=== PATIENT | female | born 1950 | race Caucasian/White ===

== ENCOUNTER 2017-05-20 18:54 | Emergency (ER) | payer MEDICARE, OTHER ==
[~2017-05-20] VITALS: Ht 154.9 cm; Wt 56.9 kg
[~2017-05-20 18:54] MED LIST: ALBU8.5H3 INH; AMOX-291 PO; AZIT250T PO; AZIT500T77 PO; BUDE10.22 INH; CEFD300C37 PO; DOXY100T PO; FLUT1BLS PO; HYDR25CA PO; OMEP-110 PO; PRED1TAB PO; PRED20TA PO; TIOT18CA INH
[2017-05-20] MEDS ORDERED: SODIUM CHLORIDE FLUSH 10ML SYR IVF ONE (19:30)
[2017-05-20 19:56] LABS: HEMATOCRIT 36.2 % (34.6-47.8); HEMOGLOBIN 12.1 g/dL (11.7-16.4); WHITE BLOOD COUNT 8.1 x10^3/uL (3.4-10)
[2017-05-20 20:07] LABS: BLOOD UREA NITROGEN 17 mg/dL (7-18)
[2017-05-20 20:14] LABS: IS PT STATUS REG ER OR PRE ER? YES
[2017-05-20] MEDS ORDERED: ALBUTEROL/IPRATROPIUM 2.5MG/0.5MG, 3 ML NPPB ONE (20:30)
[2017-05-20] MEDS ORDERED: BUPR150T73 PO (20:36)
[2017-05-20] MEDS ORDERED: ONDA4TAB7 PO (20:38)
[2017-05-20] MEDS ORDERED: LORazepam 0.5MG TABLET ONE (20:48)
[2017-05-20] MEDS ORDERED: LORazepam 0.5MG TABLET PO ONE (21:00)
[2017-05-20 21:21] LABS: ABG COLLECTION SITE RIGHT RADIAL; COLLATERAL CIRCULATION TESTING NORMAL
[2017-05-20 22:46] VITALS: BP 139/70
== END 2017-05-20 22:49 | disposition home or self-care (01) ==
LOC: ED 22:43
DX: J44.1 Chronic obstructive pulmonary disease with (acute) exacerbation (principal); I10 Essential (primary) hypertension; F17.200 Nicotine dependence, unspecified, uncomplicated; Z99.81 Dependence on supplemental oxygen
CPT/HCPCS: 36415; 36600; 71010; 80048; 82040; 82803; 83605; 83880; 84484; 85025; 87040; 93005; 94640; 99285; J7512; J7620

== ENCOUNTER 2018-05-21 22:21 | Inpatient (IN) | payer MEDICARE, OTHER ==
[~2018-05-21] VITALS: Ht 152.4 cm; Wt 64.0 kg
[~2018-05-21 22:21] MED LIST changes: -ALBU8.5H3 INH; +ALBU8.5H8 INH; +AZIT500T5 PO; -AZIT500T77 PO; +BUPR150T73 PO; +ONDA4TAB7 PO
[2018-05-21] MEDS ORDERED: SODIUM CHLORIDE 0.9% 1,000 ML IV ONE (22:33)
[2018-05-21] MEDS ORDERED: methylPREDNISolone SOD SUCC 125 MG/2 ML ONE (22:37)
[2018-05-21] MEDS ORDERED: ALBUTEROL/IPRATROPIUM 2.5MG/0.5MG, 3 ML ONE ×2 (22:38→23:18)
[2018-05-21] MEDS ORDERED: FLUT1AER INH (22:46)
[2018-05-21 22:59] LABS: BASOPHILS # (AUTO) 0.03 x10^3/uL (0-0.1); BASOPHILS % (AUTO) 0 % (0-1); EOSINOPHILS # (AUTO) 0.21 x10^3/uL (0-0.4); EOSINOPHILS % (AUTO) 2 % (1-7); LYMPHOCYTES # (AUTO) 1.56 x10^3/uL (1-3.4); LYMPHOCYTES % (AUTO) 15 % (22-44); MD NO; MEAN CORPUSCULAR HEMOGLOBIN 31.3 pg (27.0-34.8); MEAN CORPUSCULAR HGB CONC 32.2 g/dL (32.4-35.8); MEAN CORPUSCULAR VOLUME 97.3 fL (80-100); MEAN PLATELET VOLUME 7.5 fL (7.4-10.4); MONOCYTES % (AUTO) 5 % (2-9); NEUTROPHILS # (AUTO) 7.84 x10^3/uL (1.8-6.8); NEUTROPHILS % (AUTO) 77 % (42-75); PLATELET COUNT 358 x10^3/uL (130-400); RED BLOOD COUNT 3.46 x10^6/uL (3.82-5.3)
[2018-05-21] MEDS ORDERED: SODIUM CHLORIDE FLUSH 10ML SYR IVF ONE (23:00)
[2018-05-21] MEDS ORDERED: PLEASE ENTER HEIGHT AND WEIGHT MC SCH (23:00)
[2018-05-21] MEDS ORDERED: methylPREDNISolone SOD SUCC 125 MG/2 ML IVP ONE (23:00)
[2018-05-21] MEDS: ALBUTEROL/IPRATROPIUM 2.5MG/0.5MG, 3 ML NPPB SCH ×2 (23:02→23:22)
[2018-05-21 23:10] LABS: ALANINE AMINOTRANSFERASE 12 U/L (12-78); ANION GAP 3 mmol/L (5-15); CALCIUM 9.1 mg/dL (8.5-10.1); CHLORIDE 96 mmol/L (98-107); CREATININE 0.85 mg/dL (0.55-1.02)
[2018-05-21 23:21] LABS: ALKALINE PHOSPHATASE 79 U/L (45-117); BILIRUBIN,TOTAL 0.2 mg/dL (0.2-1.0); TOTAL PROTEIN 8.6 g/dL (6.4-8.2)
[2018-05-21] MEDS ORDERED: CEFTRIAXONE PMX 1GM/50ML 50 ML ONE (23:29)
[2018-05-21] MEDS ORDERED: CEFTRIAXONE 1,000 MG in SODIUM CHLORIDE 0.9% 50 ML IV ONE (23:30)
[2018-05-21] MEDS ORDERED: AZITHROMYCIN 500 MG in SODIUM CHLORIDE 0.9% 250 ML IV ONE (23:30)
[2018-05-21 23:45] LABS: TROPONIN I < 0.015 ng/mL (0.000-0.045)
[2018-05-22] MEDS ORDERED: ONDANSETRON ODT 4 MG PO PRN (00:30)
[2018-05-22] MEDS ORDERED: ONDANSETRON 2MG/ML, 2ML IVPush PRN (00:30)
[2018-05-22] MEDS ORDERED: LABETALOL 5MG/ML, 20ML IVPush PRN (00:30)
[2018-05-22] MEDS ORDERED: ACETAMINOPHEN 325 MG TABLET PO PRN (00:30)
[2018-05-22] MEDS ORDERED: ONDANSETRON ODT 4 MG ONE (00:53)
[2018-05-22] MEDS ORDERED: NICOTINE 14MG/24 HR PATCH.TD24 ONE (00:53)
[2018-05-22] MEDS ORDERED: ONDANSETRON ODT 4 MG PO ONE (01:00)
[2018-05-22] MEDS: NICOTINE 14MG/24 HR PATCH.TD24 TD SCH (01:03)
[2018-05-22] MEDS: methylPREDNISolone SOD SUCC 40 MG/ML IVPush SCH ×2 (01:03→12:30)
[2018-05-22 01:23] LABS: HEMOGLOBIN A1C 5.3 % (4.2-6.3)
[2018-05-22] MEDS ORDERED: ALBUTEROL/IPRATROPIUM 2.5MG/0.5MG, 3 ML ONE (01:29)
[2018-05-22 01:54] VITALS: BP 124/76
[2018-05-22] MEDS ORDERED: ALBUTEROL/IPRATROPIUM 2.5MG/0.5MG, 3 ML NPPB PRN (04:00)
[2018-05-22 06:48] VITALS: BP 103/61
[2018-05-22] MEDS: INSULIN LISPRO 100 UNITS/ML, PEN SQ-INSULIN SCH ×4 (07:00→21:15)
[2018-05-22] MEDS ORDERED: CEFTRIAXONE 1,000 MG IV SCH (09:00)
[2018-05-22] MEDS: FAMOTIDINE 20 MG/2 ML IVPush SCH ×2 (09:08→21:15)
[2018-05-22] MEDS: AZITHROMYCIN 250 MG TABLET PO SCH (09:08)
[2018-05-22] MEDS: CEFTRIAXONE 1,000 MG in SODIUM CHLORIDE 0.9% 50 ML IVPB SCH (09:08)
[2018-05-22 10:15] LABS: O2 FLOW 3.5 L/min
[2018-05-22 10:56] LABS: ABSOLUTE RETICS # 0.016 x10^6/uL (0.5-2.5); RED BLOOD COUNT 3.04 x10^6/uL (3.82-5.3); RETICULOCYTE COUNT % 0.51 % (0.5-1.5)
[2018-05-22] MEDS: IRON SUCROSE COMPLEX 100MG/5ML IV SCH (13:23)
[2018-05-22 13:39] VITALS: BP 133/73
[2018-05-22] MEDS: ALBUTEROL/IPRATROPIUM 2.5MG/0.5MG, 3 ML NPPB SCH ×2 (15:00→19:43)
[2018-05-22 17:14] LABS: OCCULT BLOOD NEGATIVE (NEGATIVE)
[2018-05-22 19:45] VITALS: BP 121/62
[2018-05-22] MEDS: TEMAZEPAM 15 MG CAPSULE PO PRN (21:15)
[2018-05-23] MEDS: HYDROXYZINE PAMOATE 50MG CAP PO PRN ×3 (01:01→18:46)
[2018-05-23] MEDS: NICOTINE 14MG/24 HR PATCH.TD24 TD SCH ×2 (01:01→20:45)
[2018-05-23 01:08] VITALS: BP 130/75
[2018-05-23 05:55] LABS: BASOPHILS # (AUTO) 0.01 x10^3/uL (0-0.1); BASOPHILS % (AUTO) 0 % (0-1); EOSINOPHILS % (AUTO) 0 % (1-7); LYMPHOCYTES # (AUTO) 0.58 x10^3/uL (1-3.4); LYMPHOCYTES % (AUTO) 4 % (22-44); MD NO; MEAN CORPUSCULAR HEMOGLOBIN 31.6 pg (27.0-34.8); MEAN CORPUSCULAR HGB CONC 32.4 g/dL (32.4-35.8); MEAN CORPUSCULAR VOLUME 97.6 fL (80-100); MEAN PLATELET VOLUME 7.9 fL (7.4-10.4); MONOCYTES # (AUTO) 0.56 x10^3/uL (0.2-0.8); MONOCYTES % (AUTO) 4 % (2-9); NEUTROPHILS # (AUTO) 13.45 x10^3/uL (1.8-6.8); NEUTROPHILS % (AUTO) 92 % (42-75); PLATELET COUNT 315 x10^3/uL (130-400); RED BLOOD COUNT 2.83 x10^6/uL (3.82-5.3); RED CELL DISTRIBUTION WIDTH 14.3 % (9.6-15.2)
[2018-05-23 06:03] LABS: ALBUMIN 2.6 g/dL (3.4-5.0); CALCIUM 8.7 mg/dL (8.5-10.1)
[2018-05-23 06:08] LABS: ALANINE AMINOTRANSFERASE 10 U/L (12-78); ALKALINE PHOSPHATASE 63 U/L (45-117); BILIRUBIN,TOTAL 0.3 mg/dL (0.2-1.0); CREATININE 0.66 mg/dL (0.55-1.02); TOTAL PROTEIN 7.2 g/dL (6.4-8.2)
[2018-05-23 06:17] LABS: ANION GAP 4 mmol/L (5-15); CHLORIDE 100 mmol/L (98-107)
[2018-05-23] MEDS: INSULIN LISPRO 100 UNITS/ML, PEN SQ-INSULIN SCH ×4 (07:00→20:00)
[2018-05-23 07:01] VITALS: BP 115/71
[2018-05-23] MEDS: ALBUTEROL/IPRATROPIUM 2.5MG/0.5MG, 3 ML NPPB SCH ×4 (07:30→19:20)
[2018-05-23] MEDS: FAMOTIDINE 20 MG/2 ML IVPush SCH (07:46)
[2018-05-23] MEDS: AZITHROMYCIN 250 MG TABLET PO SCH (07:46)
[2018-05-23] MEDS: CEFTRIAXONE 1,000 MG in SODIUM CHLORIDE 0.9% 50 ML IVPB SCH (09:43)
[2018-05-23] MEDS: IRON SUCROSE COMPLEX 100MG/5ML IV SCH (12:25)
[2018-05-23 15:00] VITALS: BP 138/78
[2018-05-23 19:54] VITALS: BP 145/75
[2018-05-23] MEDS: TEMAZEPAM 15 MG CAPSULE PO PRN (21:25)
[2018-05-24 02:58] VITALS: BP 124/72
[2018-05-24] MEDS: ALBUTEROL/IPRATROPIUM 2.5MG/0.5MG, 3 ML NPPB SCH ×2 (07:00→10:48)
[2018-05-24 07:38] VITALS: BP 134/77
[2018-05-24] MEDS ORDERED: AZITHROMYCIN 500 MG TABLET PO SCH (09:00)
[2018-05-24] MEDS ORDERED: FLUTICASONE/VILANTEROL 100-25MCG/INH INH SCH (09:00)
[2018-05-24] MEDS: CEFTRIAXONE 1,000 MG in SODIUM CHLORIDE 0.9% 50 ML IVPB SCH (09:05)
[2018-05-24] MEDS: INSULIN LISPRO 100 UNITS/ML, PEN SQ-INSULIN SCH ×2 (09:05→12:19)
[2018-05-24] MEDS: HYDROXYZINE PAMOATE 50MG CAP PO PRN (12:19)
[2018-05-24 13:48] VITALS: BP 135/86
[2018-05-24] MEDS ORDERED: FERR325T18 PO (14:22)
[2018-05-24] MEDS ORDERED: PRED10TA PO (14:22)
[2018-05-24] MEDS ORDERED: AZIT500T5 PO (14:22)
[2018-05-24] MEDS ORDERED: NICO-486 TD (14:22)
== END 2018-05-24 16:20 | disposition home or self-care (01) | DRG 871 ==
LOC: ED 22:55 → EDIP 05-22 00:03 → 4EST 05-22 01:35
PROVIDERS: ADMIT Internal Medicine; ATTEND Internal Medicine
DX: A41.9 Sepsis, unspecified organism (principal); J18.9 Pneumonia, unspecified organism; J96.21 Acute and chronic respiratory failure with hypoxia; J96.22 Acute and chronic respiratory failure with hypercapnia; E87.4 Mixed disorder of acid-base balance; J44.0 Chronic obstructive pulmonary disease with (acute) lower respiratory infection; J44.1 Chronic obstructive pulmonary disease with (acute) exacerbation; D62 Acute posthemorrhagic anemia; D50.9 Iron deficiency anemia, unspecified; F17.210 Nicotine dependence, cigarettes, uncomplicated; F41.9 Anxiety disorder, unspecified; I11.9 Hypertensive heart disease without heart failure; N32.9 Bladder disorder, unspecified; N95.0 Postmenopausal bleeding; Z88.2 Allergy status to sulfonamides; Z99.81 Dependence on supplemental oxygen; Z71.6 Tobacco abuse counseling
CPT/HCPCS: 36415; 36600; 71045; 76856; 80053; 82272; 82728; 82803; 82962; 83036; 83540; 83550; 83735; 83880; 84100; 84484; 85025; 85045; 87040; 93005; 94640; 94667; 96365; 96368; 96375; J0456; J0696; J1756; J7620; Q0162; J2930; J7030; J7050; J7512; S0028

== ENCOUNTER 2018-05-27 14:26 | Emergency (ER) | payer MEDICARE, OTHER ==
[~2018-05-27] VITALS: Ht 152.4 cm; Wt 60.0 kg
[~2018-05-27 14:26] MED LIST changes: +FERR325T18 PO; +FLUT1AER INH; +NICO-486 TD; +PRED10TA PO
[2018-05-27 15:01] LABS: BASOPHILS # (AUTO) 0.02 x10^3/uL (0-0.1); BASOPHILS % (AUTO) 0 % (0-1); EOSINOPHILS # (AUTO) 0.16 x10^3/uL (0-0.4); EOSINOPHILS % (AUTO) 2 % (1-7); LYMPHOCYTES # (AUTO) 1.14 x10^3/uL (1-3.4); LYMPHOCYTES % (AUTO) 11 % (22-44); MD NO; MEAN CORPUSCULAR HEMOGLOBIN 30.7 pg (27.0-34.8); MEAN CORPUSCULAR VOLUME 95.9 fL (80-100); MEAN PLATELET VOLUME 7.7 fL (7.4-10.4); MONOCYTES # (AUTO) 0.52 x10^3/uL (0.2-0.8); MONOCYTES % (AUTO) 5 % (2-9); NEUTROPHILS # (AUTO) 8.61 x10^3/uL (1.8-6.8); NEUTROPHILS % (AUTO) 82 % (42-75); PLATELET COUNT 448 x10^3/uL (130-400); RED BLOOD COUNT 3.35 x10^6/uL (3.82-5.3); RED CELL DISTRIBUTION WIDTH 14.6 % (9.6-15.2)
[2018-05-27 15:04] LABS: ANION GAP 3 mmol/L (5-15); CALCIUM 8.7 mg/dL (8.5-10.1); CHLORIDE 104 mmol/L (98-107)
[2018-05-27 15:05] LABS: CREATININE 0.73 mg/dL (0.55-1.02)
[2018-05-27 16:37] VITALS: BP 132/55
== END 2018-05-27 16:39 | disposition home or self-care (01) ==
LOC: ED 14:27
DX: J44.1 Chronic obstructive pulmonary disease with (acute) exacerbation (principal); F43.9 Reaction to severe stress, unspecified; I10 Essential (primary) hypertension; F17.200 Nicotine dependence, unspecified, uncomplicated; Z90.89 Acquired absence of other organs
CPT/HCPCS: 36415; 71045; 80048; 82040; 85025; 93005; 99285

== ENCOUNTER 2018-07-20 17:37 | Emergency (ER) | payer MEDICARE, OTHER ==
[~2018-07-20] VITALS: Ht 152.4 cm; Wt 62.0 kg
[2018-07-20] MEDS ORDERED: methylPREDNISolone SOD SUCC 125 MG/2 ML IVP ONE (18:30)
[2018-07-20] MEDS ORDERED: ALBUTEROL/IPRATROPIUM 2.5MG/0.5MG, 3 ML NPPB ONE (18:30)
[2018-07-20] MEDS ORDERED: SODIUM CHLORIDE FLUSH 10ML SYR IVF ONE (18:30)
[2018-07-20] MEDS ORDERED: methylPREDNISolone SOD SUCC 125 MG/2 ML ONE (18:38)
[2018-07-20] MEDS ORDERED: ALBUTEROL/IPRATROPIUM 2.5MG/0.5MG, 3 ML ONE (18:38)
[2018-07-20 19:25] LABS: ALBUMIN 3.2 g/dL (3.4-5.0); ANION GAP 5 mmol/L (5-15); CALCIUM 9.1 mg/dL (8.5-10.1); CHLORIDE 98 mmol/L (98-107)
[2018-07-20 19:29] LABS: BASOPHILS # (AUTO) 0.02 x10^3/uL (0-0.1); BASOPHILS % (AUTO) 0 % (0-1); EOSINOPHILS # (AUTO) 0.24 x10^3/uL (0-0.4); EOSINOPHILS % (AUTO) 3 % (1-7); LYMPHOCYTES # (AUTO) 1.07 x10^3/uL (1-3.4); LYMPHOCYTES % (AUTO) 12 % (22-44); MD NO; MEAN CORPUSCULAR HEMOGLOBIN 31.8 pg (27.0-34.8); MEAN CORPUSCULAR HGB CONC 32.5 g/dL (32.4-35.8); MEAN CORPUSCULAR VOLUME 97.7 fL (80-100); MEAN PLATELET VOLUME 8.2 fL (7.4-10.4); MONOCYTES % (AUTO) 7 % (2-9); NEUTROPHILS # (AUTO) 7.07 x10^3/uL (1.8-6.8); NEUTROPHILS % (AUTO) 79 % (42-75); PLATELET COUNT 301 x10^3/uL (130-400); RED BLOOD COUNT 3.67 x10^6/uL (3.82-5.3); RED CELL DISTRIBUTION WIDTH 14.5 % (9.6-15.2)
[2018-07-20 19:32] LABS: ALANINE AMINOTRANSFERASE 11 U/L (12-78); ALKALINE PHOSPHATASE 87 U/L (45-117); BILIRUBIN,TOTAL 0.2 mg/dL (0.2-1.0); CREATININE 0.58 mg/dL (0.55-1.02); TOTAL PROTEIN 8.3 g/dL (6.4-8.2); TROPONIN I < 0.015 ng/mL (0.000-0.045)
[2018-07-20 20:00] VITALS: BP 133/79
[2018-07-20] MEDS ORDERED: AMOXICILLIN 500 MG CAPSULE PO ONE (21:00)
== END 2018-07-20 21:12 | disposition home or self-care (01) ==
LOC: ED 17:51
DX: J44.1 Chronic obstructive pulmonary disease with (acute) exacerbation (principal); F17.200 Nicotine dependence, unspecified, uncomplicated
CPT/HCPCS: 36415; 71045; 80053; 84484; 85025; 87040; 93005; 94640; 96374; 99285; J2930

== ENCOUNTER 2018-09-15 18:46 | Emergency (ER) | payer MEDICARE, OTHER ==
[~2018-09-15] VITALS: Ht 152.4 cm; Wt 65.0 kg
[2018-09-15] MEDS ORDERED: METOCLOPRAMIDE 5 MG/ML, 2ML ONE (19:26)
[2018-09-15] MEDS ORDERED: METOCLOPRAMIDE 5 MG/ML, 2ML IVPush ONE (19:30)
[2018-09-15 19:37] LABS: BASOPHILS % (AUTO) 1 % (0-1); EOSINOPHILS # (AUTO) 0.28 x10^3/uL (0-0.4); EOSINOPHILS % (AUTO) 3 % (1-7); LYMPHOCYTES # (AUTO) 1.62 x10^3/uL (1-3.4); LYMPHOCYTES % (AUTO) 15 % (22-44); MD NO; MEAN CORPUSCULAR HEMOGLOBIN 31.6 pg (27.0-34.8); MEAN CORPUSCULAR HGB CONC 32.3 g/dL (32.4-35.8); MEAN CORPUSCULAR VOLUME 97.9 fL (80-100); MEAN PLATELET VOLUME 7.8 fL (7.4-10.4); MONOCYTES # (AUTO) 0.66 x10^3/uL (0.2-0.8); MONOCYTES % (AUTO) 6 % (2-9); NEUTROPHILS # (AUTO) 8.36 x10^3/uL (1.8-6.8); NEUTROPHILS % (AUTO) 76 % (42-75); PLATELET COUNT 302 x10^3/uL (130-400); RED BLOOD COUNT 3.78 x10^6/uL (3.82-5.3); RED CELL DISTRIBUTION WIDTH 14.6 % (9.6-15.2)
[2018-09-15 19:40] LABS: ALANINE AMINOTRANSFERASE 10 U/L (12-78); ALBUMIN 3.1 g/dL (3.4-5.0); ANION GAP 2 mmol/L (5-15); CALCIUM 8.9 mg/dL (8.5-10.1); CHLORIDE 95 mmol/L (98-107); CREATININE 0.76 mg/dL (0.55-1.02)
[2018-09-15 19:41] LABS: ALKALINE PHOSPHATASE 64 U/L (45-117); BILIRUBIN,TOTAL 0.4 mg/dL (0.2-1.0); TOTAL PROTEIN 7.2 g/dL (6.4-8.2)
[2018-09-15 21:02] LABS: MICROSCOPIC AUTO
[2018-09-15 21:03] LABS: CULTURE INDICATED? YES
[2018-09-15 23:36] VITALS: BP 128/63
== END 2018-09-15 23:39 | disposition home or self-care (01) ==
LOC: ED 21:28
DX: R11.0 Nausea (principal); I10 Essential (primary) hypertension; J43.9 Emphysema, unspecified; Z87.891 Personal history of nicotine dependence; Z90.49 Acquired absence of other specified parts of digestive tract
CPT/HCPCS: 36415; 71045; 80053; 81001; 83690; 85025; 87086; 93005; 96374; 99284; J2765

== ENCOUNTER 2018-10-10 18:43 | Emergency (ER) | payer MEDICARE, OTHER ==
[~2018-10-10] VITALS: Ht 152.4 cm; Wt 60.0 kg
[2018-10-10 18:47] VITALS: BP 133/73
--- NOTE | 2018-10-10 19:43 | NUR ---
JANNET RN: RN ASSISTED PT TO RESTROOM FOR UA. PT AMBULATED WITH STRONG STEADY GAIT WHILE WALKING WITH AN O2 TANK. UA COLLECTED AND SENT TO LAB. XRAY AND LAB AT BEDSIDE FOR STUDIES. PT CONNECTED TO ALL MONITORS, VSS.
[2018-10-10 19:51] LABS: BASOPHILS # (AUTO) 0.05 x10^3/uL (0-0.1); BASOPHILS % (AUTO) 0 % (0-1); EOSINOPHILS # (AUTO) 0.35 x10^3/uL (0-0.4); EOSINOPHILS % (AUTO) 3 % (1-7); LYMPHOCYTES # (AUTO) 1.31 x10^3/uL (1-3.4); LYMPHOCYTES % (AUTO) 10 % (22-44); MD NO; MEAN CORPUSCULAR HEMOGLOBIN 31.6 pg (27.0-34.8); MEAN CORPUSCULAR HGB CONC 31.9 g/dL (32.4-35.8); MEAN PLATELET VOLUME 7.4 fL (7.4-10.4); MONOCYTES # (AUTO) 0.78 x10^3/uL (0.2-0.8); MONOCYTES % (AUTO) 6 % (2-9); NEUTROPHILS # (AUTO) 10.84 x10^3/uL (1.8-6.8); NEUTROPHILS % (AUTO) 81 % (42-75); PLATELET COUNT 356 x10^3/uL (130-400); RED BLOOD COUNT 3.63 x10^6/uL (3.82-5.3); RED CELL DISTRIBUTION WIDTH 14.8 % (9.6-15.2)
[2018-10-10 19:55] LABS: MICROSCOPIC AUTO
[2018-10-10 20:05] LABS: CULTURE INDICATED? YES
--- NOTE | 2018-10-10 20:13 | NUR ---
PT RESTING ON GURNEY, RR EVEN AND UNLABORED. PT ON CONT. SPO2, BP. AND NURSE OB, VSS. NAD NOTED. AWAITING LAB RESULTS AND DISPO
[2018-10-10 20:20] LABS: ALANINE AMINOTRANSFERASE 11 U/L (12-78); ANION GAP 0 mmol/L (5-15); CALCIUM 8.8 mg/dL (8.5-10.1); CHLORIDE 99 mmol/L (98-107); CREATININE 0.74 mg/dL (0.55-1.02)
[2018-10-10 20:25] LABS: ALKALINE PHOSPHATASE 81 U/L (45-117); BILIRUBIN,TOTAL 0.3 mg/dL (0.2-1.0); TOTAL PROTEIN 7.7 g/dL (6.4-8.2); TROPONIN I < 0.015 ng/mL (0.000-0.045)
[2018-10-10 20:30] LABS: THYROID STIMULATING HORMONE 0.788 mIU/L (0.358-3.740)
--- NOTE | 2018-10-10 21:02 | NUR ---
DR VILLAREAL AT BEDSIDE UPDATING PT ON POC
== END 2018-10-10 21:23 ==
LOC: ED 19:38
DX: R05 Cough (principal); R53.1 Weakness; R53.83 Other fatigue; R11.0 Nausea; I10 Essential (primary) hypertension; F17.200 Nicotine dependence, unspecified, uncomplicated; J44.9 Chronic obstructive pulmonary disease, unspecified; Z90.89 Acquired absence of other organs
CPT/HCPCS: 36415; 71045; 80053; 81001; 83735; 84443; 84484; 85025; 87086; 93005; 99284

== ENCOUNTER 2018-12-26 14:44 | Inpatient (IN) | payer MEDICARE, OTHER ==
[~2018-12-26] VITALS: Ht 152.4 cm; Wt 62.5 kg
[2018-12-26 15:33] LABS: MICROSCOPIC NOT IND
[2018-12-26 15:58] LABS: CULTURE INDICATED? NO
[2018-12-26 16:01] LABS: BASOPHILS % (AUTO) 0 % (0-1); EOSINOPHILS # (AUTO) 0.37 x10^3/uL (0-0.4); EOSINOPHILS % (AUTO) 3 % (1-7); LYMPHOCYTES # (AUTO) 1.97 x10^3/uL (1-3.4); LYMPHOCYTES % (AUTO) 18 % (22-44); MD NO; MEAN CORPUSCULAR HEMOGLOBIN 30.6 pg (27.0-34.8); MEAN CORPUSCULAR HGB CONC 30.9 g/dL (32.4-35.8); MEAN CORPUSCULAR VOLUME 98.9 fL (80-100); MEAN PLATELET VOLUME 7.4 fL (7.4-10.4); MONOCYTES # (AUTO) 0.22 x10^3/uL (0.2-0.8); MONOCYTES % (AUTO) 2 % (2-9); NEUTROPHILS # (AUTO) 8.34 x10^3/uL (1.8-6.8); NEUTROPHILS % (AUTO) 77 % (42-75); PLATELET COUNT 357 x10^3/uL (130-400); RED BLOOD COUNT 3.36 x10^6/uL (3.82-5.3); RED CELL DISTRIBUTION WIDTH 15.4 % (9.6-15.2)
[2018-12-26 16:10] LABS: ALBUMIN 3.2 g/dL (3.4-5.0); CALCIUM 8.6 mg/dL (8.5-10.1); CHLORIDE 97 mmol/L (98-107)
[2018-12-26 16:15] LABS: ALANINE AMINOTRANSFERASE 10 U/L (12-78); ALKALINE PHOSPHATASE 69 U/L (45-117); BILIRUBIN,TOTAL 0.3 mg/dL (0.2-1.0); CREATININE 0.75 mg/dL (0.55-1.02); TOTAL PROTEIN 7.4 g/dL (6.4-8.2); TROPONIN I < 0.015 ng/mL (0.000-0.045)
[2018-12-26 16:18] LABS: ANION GAP 2 mmol/L (5-15)
[2018-12-26] MEDS: HYDROXYZINE PAMOATE 50MG CAP PO PRN (16:51)
[2018-12-26] MEDS ORDERED: CEFTRIAXONE PMX 1GM/50ML 50 ML ONE (16:54)
--- NOTE | 2018-12-26 16:58 | NUR ---
VERBAL SBAR REPORT EXCHANGED Nithya SMITH (RN) ON THE ONCOLOGY FLOOR. WE WILL BEGIN TO PREPARE [facility] TRANSPORT AT THIS TIME.
[2018-12-26] MEDS ORDERED: AZITHROMYCIN 500 MG in SODIUM CHLORIDE 0.9% 250 ML IV ONE (17:00)
[2018-12-26] MEDS ORDERED: CEFTRIAXONE PMX 1GM/50ML 50 ML IV ONE (17:00)
[2018-12-26] MEDS ORDERED: ACETAMINOPHEN 325 MG TABLET PO PRN (17:30)
[2018-12-26] MEDS ORDERED: hydrALAzine 20 MG/ML, 1ML IVPush PRN (17:30)
[2018-12-26] MEDS ORDERED: LABETALOL 5MG/ML, 20ML IVPush PRN (17:30)
[2018-12-26] MEDS ORDERED: IBUPROFEN 200 MG TABLET PO PRN (18:00)
[2018-12-26 18:11] VITALS: BP 143/76
[2018-12-26] MEDS: HEPARIN 5,000 UNITS/ML, 1ML SQ SCH (18:39)
[2018-12-26] MEDS: methylPREDNISolone SOD SUCC 125 MG/2 ML IVPush SCH (18:40)
[2018-12-26] MEDS: NICOTINE 14MG/24 HR PATCH.TD24 TD SCH (18:40)
[2018-12-26 19:45] VITALS: BP 120/54
[2018-12-26] MEDS: PIPERACILLIN/TAZO/PMX 3.375GM 50 ML IV SCH (19:56)
[2018-12-26] MEDS: BUDESONIDE 0.5 MG/2 ML INHA NPPB SCH (20:54)
[2018-12-26] MEDS: ALBUTEROL SULFATE 2.5 MG/3 ML NPPB SCH (20:54)
[2018-12-27 00:30] VITALS: BP 120/57
[2018-12-27] MEDS: PIPERACILLIN/TAZO/PMX 3.375GM 50 ML IV SCH ×4 (01:11→20:35)
[2018-12-27] MEDS: HEPARIN 5,000 UNITS/ML, 1ML SQ SCH ×3 (01:11→17:28)
[2018-12-27] MEDS: ALBUTEROL SULFATE 2.5 MG/3 ML NPPB SCH ×4 (03:00→21:52)
[2018-12-27 04:45] LABS: BASOPHILS # (AUTO) 0.04 x10^3/uL (0-0.1); BASOPHILS % (AUTO) 1 % (0-1); EOSINOPHILS % (AUTO) 0 % (1-7); LYMPHOCYTES # (AUTO) 0.38 x10^3/uL (1-3.4); LYMPHOCYTES % (AUTO) 6 % (22-44); MD NO; MEAN CORPUSCULAR HGB CONC 32.6 g/dL (32.4-35.8); MEAN CORPUSCULAR VOLUME 98.1 fL (80-100); MONOCYTES # (AUTO) 0.04 x10^3/uL (0.2-0.8); MONOCYTES % (AUTO) 1 % (2-9); NEUTROPHILS % (AUTO) 93 % (42-75); PLATELET COUNT 325 x10^3/uL (130-400); RED BLOOD COUNT 3.18 x10^6/uL (3.82-5.3); RED CELL DISTRIBUTION WIDTH 14.9 % (9.6-15.2)
[2018-12-27] MEDS: methylPREDNISolone SOD SUCC 125 MG/2 ML IVPush SCH ×2 (04:50→17:28)
[2018-12-27 06:44] VITALS: BP 93/50
[2018-12-27 06:50] LABS: CALCIUM 8.5 mg/dL (8.5-10.1); CREATININE 0.75 mg/dL (0.55-1.02)
[2018-12-27 07:05] LABS: ANION GAP 3 mmol/L (5-15); CHLORIDE 99 mmol/L (98-107)
[2018-12-27] MEDS: GUAIFENESIN ER 600 MG TABLET PO SCH ×2 (08:04→20:36)
[2018-12-27] MEDS: FERROUS SULFATE 325 MG TABLET PO SCH ×3 (08:04→17:28)
[2018-12-27] MEDS: BUDESONIDE 0.5 MG/2 ML INHA NPPB SCH ×2 (09:15→21:52)
[2018-12-27] MEDS ORDERED: MAGNESIUM HYDROXIDE 8%, 30ML UDC PO ONE (11:00)
[2018-12-27] MEDS: HYDROXYZINE PAMOATE 50MG CAP PO PRN (11:57)
[2018-12-27] MEDS ORDERED: ALBUTEROL SULFATE 2.5 MG/3 ML NPPB PRN (12:30)
[2018-12-27] MEDS: ONDANSETRON 2MG/ML, 2ML IVPush PRN (14:45)
[2018-12-27 15:10] VITALS: BP 95/60
[2018-12-27] MEDS ORDERED: PINK LADY ENEMA 490 ML BOTTLE PR ONE (17:00)
[2018-12-27] MEDS ORDERED: MAGNESIUM SULFATE PMX 2GM/50ML 50 ML IV ONE (17:00)
[2018-12-27] MEDS: NICOTINE 14MG/24 HR PATCH.TD24 TD SCH (17:28)
[2018-12-27 19:29] VITALS: BP 130/65
[2018-12-27] MEDS: HYDROXYZINE PAMOATE 25MG CAP PO PRN (20:36)
[2018-12-28] MEDS: HEPARIN 5,000 UNITS/ML, 1ML SQ SCH ×3 (01:46→16:38)
[2018-12-28] MEDS: PIPERACILLIN/TAZO/PMX 3.375GM 50 ML IV SCH ×4 (01:46→19:30)
[2018-12-28] MEDS: ALBUTEROL SULFATE 2.5 MG/3 ML NPPB SCH ×4 (03:00→21:15)
[2018-12-28 04:00] VITALS: BP 130/64
[2018-12-28] MEDS: methylPREDNISolone SOD SUCC 125 MG/2 ML IVPush SCH (04:43)
[2018-12-28 07:13] VITALS: BP 113/63
[2018-12-28] MEDS: GUAIFENESIN ER 600 MG TABLET PO SCH ×2 (08:59→19:30)
[2018-12-28] MEDS: FERROUS SULFATE 325 MG TABLET PO SCH ×3 (08:59→16:47)
[2018-12-28] MEDS: BUDESONIDE 0.5 MG/2 ML INHA NPPB SCH ×2 (09:37→21:15)
[2018-12-28] MEDS: HYDROXYZINE PAMOATE 25MG CAP PO PRN ×2 (10:01→19:30)
[2018-12-28 11:50] VITALS: BP 107/61
[2018-12-28] MEDS ORDERED: PRED10TA PO (12:16)
[2018-12-28] MEDS ORDERED: AMOX1TAB64 PO (12:16)
[2018-12-28] MEDS ORDERED: GUAI600T31 PO (12:16)
[2018-12-28] MEDS: NICOTINE 14MG/24 HR PATCH.TD24 TD SCH (16:47)
[2018-12-28 20:00] VITALS: BP 123/65
[2018-12-29 00:55] VITALS: BP 142/71
[2018-12-29] MEDS: PIPERACILLIN/TAZO/PMX 3.375GM 50 ML IV SCH ×2 (01:38→08:37)
[2018-12-29] MEDS: HEPARIN 5,000 UNITS/ML, 1ML SQ SCH ×2 (01:38→08:33)
[2018-12-29] MEDS: ALBUTEROL SULFATE 2.5 MG/3 ML NPPB SCH ×2 (03:15→09:46)
[2018-12-29] MEDS: ONDANSETRON 2MG/ML, 2ML IVPush PRN (04:01)
[2018-12-29 06:39] VITALS: BP 159/79
[2018-12-29] MEDS: FERROUS SULFATE 325 MG TABLET PO SCH ×2 (08:37→12:14)
[2018-12-29] MEDS: HYDROXYZINE PAMOATE 25MG CAP PO PRN (08:37)
[2018-12-29] MEDS: GUAIFENESIN ER 600 MG TABLET PO SCH (08:38)
[2018-12-29] MEDS: BUDESONIDE 0.5 MG/2 ML INHA NPPB SCH (09:46)
[2018-12-29 13:22] VITALS: BP 138/73
== END 2018-12-29 15:00 | disposition home or self-care (01) | DRG 177 ==
LOC: ED 16:41 → EDIP 16:42 → ED 16:48 → 3NW 17:32 → DCLOUNGE 12-29 14:45
PROVIDERS: ADMIT Hospitalist; ATTEND Hospitalist
DX: J15.6 Pneumonia due to other Gram-negative bacteria (principal); J96.21 Acute and chronic respiratory failure with hypoxia; J44.0 Chronic obstructive pulmonary disease with (acute) lower respiratory infection; J44.1 Chronic obstructive pulmonary disease with (acute) exacerbation; J91.8 Pleural effusion in other conditions classified elsewhere; J18.9 Pneumonia, unspecified organism; R73.9 Hyperglycemia, unspecified; D53.9 Nutritional anemia, unspecified; F32.9 Major depressive disorder, single episode, unspecified; F41.9 Anxiety disorder, unspecified; I10 Essential (primary) hypertension; Z99.81 Dependence on supplemental oxygen; Z87.01 Personal history of pneumonia (recurrent)
CPT/HCPCS: 36415; 71045; 74018; 80048; 80053; 81003; 83605; 83735; 84100; 84484; 85025; 87040; 87070; 87205; 93005; 94640; 96374; 96375; 99285; G0378; J0456; J0696; J1644; J2405; J2543; J7613; J7626; J2930; J3475; J7050

== ENCOUNTER 2019-03-21 01:56 | Inpatient (IN) | payer MEDICARE, OTHER ==
[~2019-03-21] VITALS: Ht 152.4 cm; Wt 60.4 kg
[~2019-03-21 01:56] MED LIST changes: +ALBU18HF INH; +AMOX1TAB64 PO; +ASPI-691 PO; +GUAI600T31 PO
--- NOTE | 2019-03-21 02:01 | NUR ---
BIB [facility] FOR SOB, SUDDEN ONSET STARTED APPROX 45 MIN PRIOR TO CALLING EMS. HX OF COPD, WAS ADMITTED AND INTUBATED ON 01/12 FOR COPD EXACERBATION. EMS REPORT THE PT WAS IN SEVERE DISTRESS UPON THEIR ARRIVAL, RA SAT OF 96%. CRACKLES IN THE LOWER LOBES BILATERALLY. DENIES HX OF CHF. NO PERIPHERAL EDEMA NOTED. PT WAS ALSO HYPERTENSIVE AT 190/105. EMS PLACED PT ON CPAP DUE TO INCREASED WOB. PT IMPROVED WITH CPAP. NO MEDICATIONS GIVEN EN ROUTE. UPON ARRIVAL TO THE ER THE PT WAS TOLERATING THE CPAP MASK WELL. NO DISTRESS. VITALS STABLE. FAMILY AT BEDSIDE. DR. SALAS AT BEDSIDE EVALUATING PT. CRACKLES AND RHONCHI IN THE LOWER LOBES BILATERALLY. NO PERIPHERAL EDEMA NOTED. PT DENIES ANY RECENT FEVER/CHILLS, OR COUGH. ALSO DENIES ANY RECENT WEIGHT GAIN, DENIES ANY HX OF CHF, ONLY REPORTS COPD. EKG COMPLETE, MONITORING EQUIPMENT APPLIED. WILL CONTINUE TO MONITOR.
[2019-03-21] MEDS ORDERED: NITROGLYCERIN OINT 2%, 1GM TP ONE ×2 (02:09→02:30)
[2019-03-21] MEDS ORDERED: methylPREDNISolone SOD SUCC 125 MG/2 ML ONE (02:09)
--- NOTE | 2019-03-21 02:13 | NUR ---
PT NOT TOLERATING THE BiPAP MASK. STATES "IT'S NOT COMFORTABLE THE AMBULANCE ONE". RESPIRATORY TRIED A LARGER MASK, PT STILL AGITATED. PT ALSO TRIALED OFF BIPAP FOR A FEW MINUTES. PT IN MODERATE DISTRESS, ONLY ABLE TO SPEAK 3-4 WORD SENTENCES WHILE SATS REMAIN ABOVE 94%. THIS DISCUSSED WITH DR. SALAS. PT TO BE TRIED ON OPTIFLOW
[2019-03-21 02:21] LABS: BASOPHILS # (AUTO) 0.07 x10^3/uL (0-0.1); BASOPHILS % (AUTO) 1 % (0-1); EOSINOPHILS % (AUTO) 6 % (1-7); LYMPHOCYTES # (AUTO) 1.84 x10^3/uL (1-3.4); LYMPHOCYTES % (AUTO) 20 % (22-44); MD NO; MEAN CORPUSCULAR HEMOGLOBIN 30.9 pg (27.0-34.8); MEAN CORPUSCULAR HGB CONC 31.1 g/dL (32.4-35.8); MEAN CORPUSCULAR VOLUME 99.4 fL (80-100); MEAN PLATELET VOLUME 7.4 fL (7.4-10.4); MONOCYTES # (AUTO) 1.21 x10^3/uL (0.2-0.8); MONOCYTES % (AUTO) 13 % (2-9); NEUTROPHILS # (AUTO) 5.67 x10^3/uL (1.8-6.8); NEUTROPHILS % (AUTO) 60 % (42-75); PLATELET COUNT 361 x10^3/uL (130-400); RED CELL DISTRIBUTION WIDTH 14.5 % (9.6-15.2)
--- NOTE | 2019-03-21 02:28 | NUR ---
PUREWICK PLACED ON PT
[2019-03-21] MEDS ORDERED: MORPHINE SULFATE 4 MG/ML, 1ML IVPush PRN (02:30)
[2019-03-21] MEDS ORDERED: methylPREDNISolone SOD SUCC 125 MG/2 ML IVP ONE (02:30)
[2019-03-21] MEDS ORDERED: ALBUTEROL SULFATE 2.5 MG/3 ML NPPB ONE (02:30)
[2019-03-21] MEDS ORDERED: IPRATROPIUM 0.5 MG/2.5 ML INHA NPPB ONE (02:30)
[2019-03-21] MEDS ORDERED: SODIUM CHLORIDE FLUSH 10ML SYR IVF ONE (02:30)
[2019-03-21 02:33] LABS: INTERNATIONAL NORMALIZED RATIO 0.88 (0.93-1.1); PROTHROMBIN TIME 9.3 Seconds (9.6-11.5)
[2019-03-21 02:34] LABS: ALANINE AMINOTRANSFERASE 28 U/L (12-78); ALBUMIN 3.3 g/dL (3.4-5.0); ANION GAP 7 mmol/L (5-15); CHLORIDE 104 mmol/L (98-107); CREATININE 1.38 mg/dL (0.55-1.02)
--- NOTE | 2019-03-21 02:36 | NUR ---
TRIALED PT ON OPTI FLOW. PT STATES "THIS ALATORRE MY NOSE, I DON'T LIKE IT. I WANT THE MASK BACK". PT PLACED BACK ON BiPAP AT THIS TIME.
[2019-03-21 02:38] LABS: ALKALINE PHOSPHATASE 89 U/L (45-117); BILIRUBIN,TOTAL 0.2 mg/dL (0.2-1.0); TOTAL PROTEIN 8.1 g/dL (6.4-8.2); TROPONIN I < 0.015 ng/mL (0.000-0.045)
[2019-03-21] MEDS ORDERED: ALBUTEROL/IPRATROPIUM 2.5MG/0.5MG, 3 ML ONE (02:57)
[2019-03-21] MEDS ORDERED: FUROSEMIDE 40 MG/4 ML ONE (02:58)
[2019-03-21] MEDS ORDERED: LORazepam 2 MG/ML, 1ML ONE (02:59)
[2019-03-21] MEDS ORDERED: FUROSEMIDE 40 MG/4 ML IV ONE (03:00)
[2019-03-21] MEDS ORDERED: LORazepam 2 MG/ML, 1ML IVPush ONE (03:00)
--- NOTE | 2019-03-21 03:08 | NUR ---
PT MEDICATED PER EMAR. 5 RIGHTS ADDRESSED. PT ALSO RECEIVING BREATHING TREATMENT. TOLERATING WELL, TALKING WITH MASK ON WITH NO DISTRESS
[2019-03-21] MEDS ORDERED: BUPR150T13 PO (03:16)
[2019-03-21] MEDS ORDERED: HYDR25TA11 PO (03:17)
--- NOTE | 2019-03-21 03:33 | NUR ---
PT HAS BEEN OFF BIPAP SINCE 299, TOLERATING WELL, ABLE TO SPEAK COMPLETE SENTENCES WITHOUT DIFFICULTY. RR HAS DECREASED TO 19, SATS REMAIN 94-95% ON NA @ 4LPM. PT ALSO NOT ANXIOUS. BP HAS DECREASED WELL.
[2019-03-21] MEDS ORDERED: POLYETHYLENE GLYCOL 17 GM PACKET PO PRN (04:00)
[2019-03-21] MEDS ORDERED: morphine SULFATE 10 MG/ML, 1ML IVPush PRN (04:00)
[2019-03-21] MEDS ORDERED: PROMETHAZINE 25 MG/ML, 1ML IM PRN (04:00)
[2019-03-21] MEDS ORDERED: LABETALOL 5MG/ML, 20ML IVPush PRN (04:00)
[2019-03-21] MEDS ORDERED: ONDANSETRON 4 MG TABLET PO PRN (04:00)
[2019-03-21] MEDS ORDERED: ACETAMINOPHEN 325 MG TABLET PO PRN (04:00)
[2019-03-21] MEDS ORDERED: ONDANSETRON ODT 4 MG PO PRN (04:00)
[2019-03-21] MEDS ORDERED: OXYcodone IR 5MG TABLET PO PRN (04:00)
[2019-03-21] MEDS ORDERED: BISACODYL 10 MG SUPP PR PRN (04:00)
[2019-03-21] MEDS ORDERED: hydrALAzine 20 MG/ML, 1ML IVPush PRN (04:00)
[2019-03-21] MEDS: FERROUS SULFATE 325 MG TABLET PO SCH ×4 (04:00→16:20)
[2019-03-21] MEDS ORDERED: DOCUSATE 100 MG CAPSULE PO PRN (04:00)
[2019-03-21] MEDS ORDERED: ONDANSETRON 2MG/ML, 2ML IVPush PRN (04:00)
[2019-03-21] MEDS ORDERED: methylPREDNISolone SOD SUCC 125 MG/2 ML IVPush SCH (04:00)
--- NOTE | 2019-03-21 04:18 | NUR ---
REPORT TO LESIA LONGORIA.
[2019-03-21 05:03] VITALS: BP 124/72
[2019-03-21 05:31] LABS: FREE T4 (FREE THYROXINE) 0.84 ng/dL (0.76-1.46); HEMOGLOBIN A1C 5.1 % (4.2-6.3); THYROID STIMULATING HORMONE 5.12 mIU/L (0.358-3.740)
[2019-03-21] MEDS ORDERED: ALPR0.5T PO (05:39)
[2019-03-21] MEDS ORDERED: FURO20TA3 PO (05:40)
[2019-03-21] MEDS ORDERED: POTA10CA PO (05:42)
[2019-03-21] MEDS ORDERED: IPRA3AMP30 NEB (05:44)
[2019-03-21] MEDS ORDERED: FERR324T5 PO (05:45)
[2019-03-21] MEDS ORDERED: ASPI1TAB21 PO (05:48)
[2019-03-21] MEDS: ALBUTEROL/IPRATROPIUM 2.5MG/0.5MG, 3 ML NPPB SCH ×4 (06:00→21:52)
[2019-03-21] MEDS: HEPARIN 5,000 UNITS/ML, 1ML SQ SCH ×3 (06:02→20:03)
[2019-03-21] MEDS: ASA/APAP/ CAFFEINE TABLET PO PRN ×2 (06:02→13:01)
[2019-03-21] MEDS ORDERED: POTASSIUM CHLORIDE 20 MEQ TAB.ER.PRT PO ONE (07:30)
[2019-03-21 08:03] VITALS: BP 128/81
[2019-03-21] MEDS: FUROSEMIDE 20 MG/2 ML IV SCH (08:24)
[2019-03-21] MEDS: BUDESONIDE 0.5 MG/2 ML INHA NPPB SCH ×2 (08:29→10:00)
[2019-03-21] MEDS: BUPROPION SR 150 MG TABLET PO SCH ×2 (08:35→20:03)
[2019-03-21] MEDS: DOXYCYCLINE 100MG TABLET PO SCH ×2 (10:44→20:03)
[2019-03-21] MEDS: methylPREDNISolone SOD SUCC 40 MG/ML IVPush SCH ×2 (13:01→20:03)
[2019-03-21 13:03] VITALS: BP 103/64
[2019-03-21 19:53] VITALS: BP 145/88
[2019-03-22 03:16] VITALS: BP 113/69
[2019-03-22] MEDS: methylPREDNISolone SOD SUCC 40 MG/ML IVPush SCH ×3 (04:51→21:06)
[2019-03-22] MEDS: HEPARIN 5,000 UNITS/ML, 1ML SQ SCH ×3 (04:51→21:06)
[2019-03-22 06:50] LABS: ALBUMIN 3.2 g/dL (3.4-5.0); ANION GAP 5 mmol/L (5-15); CALCIUM 9.3 mg/dL (8.5-10.1); CHLORIDE 104 mmol/L (98-107)
[2019-03-22 06:52] LABS: MEAN CORPUSCULAR HEMOGLOBIN 31.8 pg (27.0-34.8); MEAN CORPUSCULAR HGB CONC 32.2 g/dL (32.4-35.8); MEAN CORPUSCULAR VOLUME 98.7 fL (80-100); PLATELET COUNT 336 x10^3/uL (130-400); RED CELL DISTRIBUTION WIDTH 14.7 % (9.6-15.2)
[2019-03-22 06:53] LABS: ALANINE AMINOTRANSFERASE 22 U/L (12-78); ALKALINE PHOSPHATASE 79 U/L (45-117); BILIRUBIN,TOTAL 0.3 mg/dL (0.2-1.0); CHOL/HDL RATIO 3.2; CHOLESTEROL, TOTAL 259 mg/dL (140-239); CREATININE 1.42 mg/dL (0.55-1.02); HDL CHOL % 31 % (28-40); HDL CHOLESTEROL (DIRECT) 81 mg/dL (40-60); LDL CHOLESTEROL,CALCULATED 163 mg/dL (54-169); TOTAL PROTEIN 8.1 g/dL (6.4-8.2); TRIGLYCERIDES 77 mg/dL (50-200); VLDL CHOLESTEROL 15 mg/dL (0-25)
[2019-03-22 07:01] VITALS: BP 118/73
[2019-03-22] MEDS: ALBUTEROL/IPRATROPIUM 2.5MG/0.5MG, 3 ML NPPB SCH ×4 (07:03→20:00)
[2019-03-22 07:28] LABS: MD YES
[2019-03-22 07:30] LABS: BAND#(MANUAL) 0.23 x10^3/uL; BANDS%(MANUAL) 2 % (0-7); LYMPH#(MANUAL) 0.93 x10^3/uL (1-3.4); LYMPHS% (MANUAL) 8 % (22-44); SEG#(MANUAL) 10.44 x10^3/uL (1.8-6.8); SEGS% (MANUAL) 90 % (42-75)
[2019-03-22 07:31] LABS: <PLATELET ESTIMATE> ADEQUATE; <PLT MORPHOLOGY> NORMAL PLT MORPH; <RBC MORPHOLOGY> NORMAL
[2019-03-22] MEDS: BUPROPION SR 150 MG TABLET PO SCH ×2 (09:40→21:05)
[2019-03-22] MEDS: DOXYCYCLINE 100MG TABLET PO SCH ×2 (09:40→21:05)
[2019-03-22] MEDS: FUROSEMIDE 20 MG/2 ML IV SCH (09:40)
[2019-03-22] MEDS: FERROUS SULFATE 325 MG TABLET PO SCH ×3 (09:40→17:55)
[2019-03-22] MEDS: BUDESONIDE 0.5 MG/2 ML INHA NPPB SCH ×2 (10:02→20:00)
[2019-03-22 11:28] LABS: MICROSCOPIC AUTO
[2019-03-22 11:30] LABS: CULTURE INDICATED? YES
[2019-03-22] MEDS: ASA/APAP/ CAFFEINE TABLET PO PRN (11:48)
[2019-03-22 14:34] VITALS: BP 122/79
[2019-03-22 19:03] VITALS: BP 130/73
[2019-03-23] MEDS: ASA/APAP/ CAFFEINE TABLET PO PRN (00:22)
[2019-03-23 02:55] VITALS: BP 159/81
[2019-03-23] MEDS: methylPREDNISolone SOD SUCC 40 MG/ML IVPush SCH ×3 (05:54→21:25)
[2019-03-23] MEDS: HEPARIN 5,000 UNITS/ML, 1ML SQ SCH ×3 (05:54→21:25)
[2019-03-23 06:22] LABS: BASOPHILS # (AUTO) 0.03 x10^3/uL (0-0.1); BASOPHILS % (AUTO) 0 % (0-1); EOSINOPHILS % (AUTO) 0 % (1-7); LYMPHOCYTES # (AUTO) 0.66 x10^3/uL (1-3.4); LYMPHOCYTES % (AUTO) 5 % (22-44); MD NO; MEAN CORPUSCULAR HEMOGLOBIN 33.1 pg (27.0-34.8); MEAN CORPUSCULAR HGB CONC 32.8 g/dL (32.4-35.8); MEAN PLATELET VOLUME 8.3 fL (7.4-10.4); MONOCYTES # (AUTO) 0.53 x10^3/uL (0.2-0.8); MONOCYTES % (AUTO) 4 % (2-9); NEUTROPHILS # (AUTO) 13.15 x10^3/uL (1.8-6.8); NEUTROPHILS % (AUTO) 92 % (42-75); PLATELET COUNT 351 x10^3/uL (130-400); RED BLOOD COUNT 3.06 x10^6/uL (3.82-5.3); RED CELL DISTRIBUTION WIDTH 14.5 % (9.6-15.2)
[2019-03-23 06:24] LABS: ANION GAP 7 mmol/L (5-15); CHLORIDE 106 mmol/L (98-107)
[2019-03-23 06:26] LABS: CREATININE 1.29 mg/dL (0.55-1.02)
[2019-03-23 07:54] VITALS: BP 166/83
[2019-03-23] MEDS: BUPROPION SR 150 MG TABLET PO SCH ×2 (08:13→21:24)
[2019-03-23] MEDS: FERROUS SULFATE 325 MG TABLET PO SCH ×3 (08:13→17:36)
[2019-03-23] MEDS: ALBUTEROL/IPRATROPIUM 2.5MG/0.5MG, 3 ML NPPB SCH ×3 (09:00→19:48)
[2019-03-23] MEDS: BUDESONIDE 0.5 MG/2 ML INHA NPPB SCH ×2 (09:00→19:48)
[2019-03-23] MEDS: DOXYCYCLINE 100MG TABLET PO SCH ×2 (11:16→21:24)
[2019-03-23 13:30] VITALS: BP 134/81
[2019-03-23 20:52] VITALS: BP 147/78
[2019-03-24 00:38] VITALS: BP 128/66
[2019-03-24] MEDS: HEPARIN 5,000 UNITS/ML, 1ML SQ SCH (05:15)
[2019-03-24] MEDS: methylPREDNISolone SOD SUCC 40 MG/ML IVPush SCH (05:15)
[2019-03-24] MEDS: ALBUTEROL/IPRATROPIUM 2.5MG/0.5MG, 3 ML NPPB SCH ×2 (06:44→11:45)
[2019-03-24] MEDS: BUDESONIDE 0.5 MG/2 ML INHA NPPB SCH (06:44)
[2019-03-24] MEDS: FERROUS SULFATE 325 MG TABLET PO SCH (08:43)
[2019-03-24] MEDS: DOXYCYCLINE 100MG TABLET PO SCH (08:43)
[2019-03-24] MEDS: BUPROPION SR 150 MG TABLET PO SCH (08:43)
[2019-03-24] MEDS ORDERED: DOXY100C15 PO (09:14)
[2019-03-24] MEDS ORDERED: PRED20TA PO (09:14)
[2019-03-24 09:23] VITALS: BP 149/80
== END 2019-03-24 13:54 | disposition home health service (06) | DRG 291 ==
LOC: ED 03:24 → EDIP 03:33 → 4EST 04:58 → DCLOUNGE 03-24 13:26
PROVIDERS: ADMIT Internal Medicine; ATTEND Internal Medicine
PROC: 5A09357 Assistance with Respiratory Ventilation, Less than 24 Consecutive Hours, Continuous Positive Airway Pressure (ICD-10-PCS; principal; 2019-03-21)
DX: I11.0 Hypertensive heart disease with heart failure (principal); J96.21 Acute and chronic respiratory failure with hypoxia; N17.0 Acute kidney failure with tubular necrosis; E44.1 Mild protein-calorie malnutrition; I50.33 Acute on chronic diastolic (congestive) heart failure; F17.200 Nicotine dependence, unspecified, uncomplicated; F32.9 Major depressive disorder, single episode, unspecified; F41.9 Anxiety disorder, unspecified; J43.9 Emphysema, unspecified; K57.90 Diverticulosis of intestine, part unspecified, without perforation or abscess without bleeding; Z85.820 Personal history of malignant melanoma of skin; Z99.81 Dependence on supplemental oxygen; Z88.2 Allergy status to sulfonamides; Z88.1 Allergy status to other antibiotic agents; Z88.8 Allergy status to other drugs, medicaments and biological substances; Z91.018 Allergy to other foods; Z68.26 Body mass index [BMI] 26.0-26.9, adult
CPT/HCPCS: 36415; 71045; 80048; 80053; 80061; 81001; 83036; 83735; 83880; 84439; 84443; 84484; 85025; 85610; 85730; 87086; 93005; 94640; 94660; G0378; J1644; J1940; J7613; J7620; J7626; J7644; Q0162; J2060; J2920; J2930; Q0177

== ENCOUNTER 2019-12-10 13:03 | Inpatient (IN) | payer MEDICARE, OTHER ==
[~2019-12-10] VITALS: Ht 152.4 cm; Wt 70.3 kg
[~2019-12-10 13:03] MED LIST changes: +ALPR0.5T PO; +ASPI1TAB21 PO; +AZIT500T10 PO; -AZIT500T5 PO; +BUPR150T13 PO; +DOXY100C15 PO; +FERR324T5 PO; +FURO20TA3 PO; +HYDR-826 PO; +IPRA3AMP30 NEB; +POTA10CA PO; -PRED1TAB PO; +PRED1TAB19 PO
[2019-12-10] MEDS ORDERED: ALBUTEROL/IPRATROPIUM 2.5MG/0.5MG, 3 ML ONE (13:24)
--- NOTE | 2019-12-10 13:26 | NUR ---
BREAK RN: PT BIB EMS, RECENTLY D/C FROM [facility] ON [address] AND SENT HOME ON [facility]CLINE. PT WITH INCREASED SOB AND WORK OF BREATHING TODAY. PT ON ALL MONITORS, EKG COMPLETED. RT AT BEDSIDE, VICKI GARCIA INITIATED. LABS DRAWN, PCXR COMPLETED. RESULTS PENDING. FAMILY AT BEDSIDE. CALL LIGHT W/I REACH
[2019-12-10] MEDS ORDERED: CEFTRIAXONE PMX 1GM/50ML 50 ML IVPB ONE (13:30)
[2019-12-10] MEDS ORDERED: SODIUM CHLORIDE FLUSH 10ML SYR IVF ONE (13:30)
[2019-12-10] MEDS ORDERED: AZITHROMYCIN 500 MG in SODIUM CHLORIDE 0.9% 250 ML IVPB ONE (13:30)
[2019-12-10] MEDS: ALBUTEROL/IPRATROPIUM 2.5MG/0.5MG, 3 ML NPPB SCH ×3 (13:36→20:34)
[2019-12-10 13:40] LABS: MEAN CORPUSCULAR HEMOGLOBIN 32.2 pg (27.0-34.8); MEAN CORPUSCULAR HGB CONC 31.7 g/dL (32.4-35.8); MEAN CORPUSCULAR VOLUME 101.7 fL (80-100); MEAN PLATELET VOLUME 7.8 fL (7.4-10.4); PLATELET COUNT 362 x10^3/uL (130-400); RED BLOOD COUNT 3.68 x10^6/uL (3.82-5.3); RED CELL DISTRIBUTION WIDTH 14.2 % (9.6-15.2)
[2019-12-10 13:45] LABS: ALANINE AMINOTRANSFERASE 24 U/L (12-78); ALBUMIN 3.2 g/dL (3.4-5.0); ANION GAP 3 mmol/L (5-15); CALCIUM 9.1 mg/dL (8.5-10.1); CHLORIDE 99 mmol/L (98-107); CREATININE 1.06 mg/dL (0.55-1.02)
[2019-12-10 13:49] LABS: ALKALINE PHOSPHATASE 75 U/L (45-117); BILIRUBIN,TOTAL 0.2 mg/dL (0.2-1.0); TOTAL PROTEIN 7.9 g/dL (6.4-8.2); TROPONIN I < 0.015 ng/mL (0.000-0.045)
[2019-12-10 14:37] LABS: BASOPHILS # (AUTO) 0.05 x10^3/uL (0-0.1); BASOPHILS % (AUTO) 0 % (0-1); EOSINOPHILS % (AUTO) 0 % (1-7); LYMPHOCYTES # (AUTO) 1.08 x10^3/uL (1-3.4); LYMPHOCYTES % (AUTO) 7 % (22-44); MD SCAN; MONOCYTES # (AUTO) 0.86 x10^3/uL (0.2-0.8); MONOCYTES % (AUTO) 5 % (2-9); NEUTROPHILS # (AUTO) 14.01 x10^3/uL (1.8-6.8); NEUTROPHILS % (AUTO) 88 % (42-75)
[2019-12-10] MEDS ORDERED: CEFTRIAXONE PMX 1GM/50ML 50 ML ONE (14:43)
--- NOTE | 2019-12-10 14:56 | NUR ---
ADMITTING MD AT BEDSIDE. IV ABX STARTED AFTER BC DRAWN. AWAITING BED ASSIGNMENT
[2019-12-10] MEDS: ASA/APAP/ CAFFEINE TABLET PO SCH (15:00)
[2019-12-10] MEDS ORDERED: SODIUM CHLORIDE FLUSH 10ML SYR IVF PRN (15:00)
[2019-12-10] MEDS ORDERED: BACLOFEN 10 MG TABLET PO PRN (15:30)
[2019-12-10] MEDS ORDERED: hydrALAzine 20 MG/ML, 1ML IVPush PRN (15:30)
[2019-12-10] MEDS ORDERED: ACETAMINOPHEN 325 MG TABLET PO PRN (15:30)
[2019-12-10] MEDS ORDERED: ONDANSETRON 2MG/ML, 2ML IVPush PRN (15:30)
[2019-12-10] MEDS ORDERED: morphine SULFATE 10 MG/ML, 1ML IVPush PRN (15:30)
[2019-12-10] MEDS: methylPREDNISolone SOD SUCC 125 MG/2 ML IVPush SCH ×2 (15:30→23:35)
[2019-12-10] MEDS ORDERED: ALBUTEROL/IPRATROPIUM 2.5MG/0.5MG, 3 ML NEB SCH (16:00)
--- NOTE | 2019-12-10 16:02 | NUR ---
TRIED TO CALL REPORT X1, NO ANSWER
--- NOTE | 2019-12-10 16:09 | NUR ---
REPORT TO NITO GRAF, PT TO HAVE FLU RESULTED BEFORE COMING UP PT HAS DOUBLE OCCUPANCY ROOM. CHARGE AND THROUGHPUT RN NOTIFIED.
[2019-12-10] MEDS ORDERED: OMNIPAQUE 350 MG/ML, 100ML BOTTLE ONE (17:59)
--- NOTE | 2019-12-10 18:19 | NUR ---
FLU SWAB RECOLLECTED AND SENT TO LAB
[2019-12-10 18:39] LABS: RAPID INFLUENZA A Negative (Negative); RAPID INFLUENZA B Negative (Negative)
--- NOTE | 2019-12-10 18:40 | NUR ---
DIET TRAY ORDERED
[2019-12-10] MEDS ORDERED: LORazepam 0.5MG TABLET ONE (18:42)
[2019-12-10] MEDS ORDERED: methylPREDNISolone SOD SUCC 40 MG/ML ONE (18:42)
--- NOTE | 2019-12-10 19:16 | NUR ---
REPORT FROM LESIA CORONEL. PT TO TRANSFER TO INPATIENT STATUS.
--- NOTE | 2019-12-10 19:20 | NUR ---
FAMILY DAY CARE PROVIDER NOTIFIED THAT PT IS C/O IV SITE PAIN. IV SITE ASSESSED, IV FLUSHES AND DRAWS. PT STATES "THE TAPE IS THE WORST PART. CAN'T YOU JUST PUT IT SOMEONE ELSE?"
[2019-12-10] MEDS ORDERED: ONDANSETRON ODT 4 MG ONE (19:41)
[2019-12-10] MEDS: ONDANSETRON ODT 4 MG PO PRN (19:45)
[2019-12-10 20:00] VITALS: BP 118/79
[2019-12-10] MEDS: BUDESONIDE 0.5 MG/2 ML INHA INH SCH (20:34)
[2019-12-10] MEDS: BUPROPION SR 150 MG TABLET PO SCH (20:49)
[2019-12-10] MEDS: HEPARIN 5,000 UNITS/ML, 1ML SQ SCH (20:49)
[2019-12-11] MEDS ORDERED: ALBUTEROL/IPRATROPIUM 2.5MG/0.5MG, 3 ML NPPB PRN (00:30)
[2019-12-11 01:10] VITALS: BP 112/60
[2019-12-11 03:47] LABS: MICROSCOPIC NOT IND
[2019-12-11 03:50] LABS: CULTURE INDICATED? NO
[2019-12-11] MEDS: HEPARIN 5,000 UNITS/ML, 1ML SQ SCH ×3 (03:58→21:14)
[2019-12-11 06:15] LABS: ANION GAP 2 mmol/L (5-15); CALCIUM 8.7 mg/dL (8.5-10.1); CHLORIDE 100 mmol/L (98-107)
[2019-12-11 06:23] LABS: MEAN CORPUSCULAR HEMOGLOBIN 32.4 pg (27.0-34.8); MEAN CORPUSCULAR HGB CONC 31.9 g/dL (32.4-35.8); MEAN CORPUSCULAR VOLUME 101.4 fL (80-100); MEAN PLATELET VOLUME 8.3 fL (7.4-10.4); PLATELET COUNT 291 x10^3/uL (130-400); RED BLOOD COUNT 3.27 x10^6/uL (3.82-5.3); RED CELL DISTRIBUTION WIDTH 14.3 % (9.6-15.2)
[2019-12-11 06:46] LABS: CREATININE 1.18 mg/dL (0.55-1.02)
[2019-12-11 06:49] LABS: BASOPHILS # (AUTO) 0.02 x10^3/uL (0-0.1); BASOPHILS % (AUTO) 0 % (0-1); EOSINOPHILS % (AUTO) 0 % (1-7); LYMPHOCYTES # (AUTO) 0.39 x10^3/uL (1-3.4); LYMPHOCYTES % (AUTO) 4 % (22-44); MD SCAN; MONOCYTES # (AUTO) 0.09 x10^3/uL (0.2-0.8); MONOCYTES % (AUTO) 1 % (2-9); NEUTROPHILS # (AUTO) 9.46 x10^3/uL (1.8-6.8); NEUTROPHILS % (AUTO) 95 % (42-75)
[2019-12-11 07:11] LABS: FREE T4 (FREE THYROXINE) 0.95 ng/dL (0.76-1.46)
[2019-12-11 07:25] VITALS: BP 126/75
[2019-12-11] MEDS: BUDESONIDE 0.5 MG/2 ML INHA INH SCH ×2 (07:40→18:40)
[2019-12-11] MEDS: ALBUTEROL/IPRATROPIUM 2.5MG/0.5MG, 3 ML NPPB SCH ×5 (07:40→22:20)
[2019-12-11] MEDS: FERROUS SULFATE 325 MG TABLET PO SCH (08:20)
[2019-12-11] MEDS: BUPROPION SR 150 MG TABLET PO SCH ×2 (08:20→21:14)
[2019-12-11] MEDS: methylPREDNISolone SOD SUCC 125 MG/2 ML IVPush SCH ×2 (08:22→16:10)
[2019-12-11] MEDS: [UNRECOGNIZED DRUG - OTHER] INH SCH (08:28)
[2019-12-11 12:25] VITALS: BP 109/66
[2019-12-11] MEDS: INSULIN LISPRO 100 UNITS/ML, PEN SQ-INSULIN SCH ×3 (12:58→21:00)
[2019-12-11] MEDS: ASA/APAP/ CAFFEINE TABLET PO SCH (16:33)
[2019-12-11] MEDS: ONDANSETRON ODT 4 MG PO PRN (17:34)
[2019-12-11 19:38] VITALS: BP 108/68
[2019-12-11] MEDS ORDERED: FLUTICASONE NASAL SPRAY 16GM NAS PRN (21:00)
[2019-12-12 01:04] VITALS: BP 102/63
[2019-12-12] MEDS: HEPARIN 5,000 UNITS/ML, 1ML SQ SCH ×3 (04:00→21:40)
[2019-12-12] MEDS: ALBUTEROL/IPRATROPIUM 2.5MG/0.5MG, 3 ML NPPB SCH ×5 (06:47→21:48)
[2019-12-12] MEDS: BUDESONIDE 0.5 MG/2 ML INHA INH SCH ×2 (06:47→18:45)
[2019-12-12 07:02] VITALS: BP 104/65
[2019-12-12 07:19] LABS: CALCIUM 8.9 mg/dL (8.5-10.1); CREATININE 1.13 mg/dL (0.55-1.02)
[2019-12-12 07:30] LABS: ANION GAP 3 mmol/L (5-15); CHLORIDE 98 mmol/L (98-107)
[2019-12-12] MEDS: FERROUS SULFATE 325 MG TABLET PO SCH (07:42)
[2019-12-12] MEDS: BUPROPION SR 150 MG TABLET PO SCH ×2 (07:42→21:40)
[2019-12-12] MEDS: [UNRECOGNIZED DRUG - OTHER] INH SCH (07:42)
[2019-12-12] MEDS: LORATADINE 10 MG TABLET PO SCH (07:42)
[2019-12-12] MEDS: methylPREDNISolone SOD SUCC 125 MG/2 ML IVPush SCH ×2 (07:42)
[2019-12-12] MEDS: INSULIN LISPRO 100 UNITS/ML, PEN SQ-INSULIN SCH ×4 (09:39→21:00)
[2019-12-12] MEDS: ONDANSETRON ODT 4 MG PO PRN (11:25)
[2019-12-12 12:32] VITALS: BP 116/71
[2019-12-12] MEDS: GUAIFENESIN ER 600 MG TABLET PO SCH ×2 (12:41→21:40)
[2019-12-12] MEDS: ASA/APAP/ CAFFEINE TABLET PO SCH ×2 (15:53→17:12)
[2019-12-12 19:31] VITALS: BP 120/73
[2019-12-12] MEDS ORDERED: ASA/APAP/ CAFFEINE TABLET PO PRN (23:45)
[2019-12-13 00:55] VITALS: BP 103/63
[2019-12-13] MEDS: ALBUTEROL/IPRATROPIUM 2.5MG/0.5MG, 3 ML NPPB SCH ×3 (06:00→14:00)
[2019-12-13] MEDS: HEPARIN 5,000 UNITS/ML, 1ML SQ SCH ×2 (06:17→13:40)
[2019-12-13] MEDS: INSULIN LISPRO 100 UNITS/ML, PEN SQ-INSULIN SCH ×3 (07:00→16:00)
[2019-12-13] MEDS: BUDESONIDE 0.5 MG/2 ML INHA INH SCH (07:08)
[2019-12-13 07:46] VITALS: BP 125/84
[2019-12-13] MEDS ORDERED: PRED20TA PO (08:48)
[2019-12-13] MEDS ORDERED: ATOR40TA78 PO (08:49)
[2019-12-13] MEDS: [UNRECOGNIZED DRUG - OTHER] INH SCH (08:53)
[2019-12-13] MEDS: BUPROPION SR 150 MG TABLET PO SCH (08:54)
[2019-12-13] MEDS: LORATADINE 10 MG TABLET PO SCH (08:54)
[2019-12-13] MEDS: FERROUS SULFATE 325 MG TABLET PO SCH (08:54)
[2019-12-13] MEDS: GUAIFENESIN ER 600 MG TABLET PO SCH (08:54)
[2019-12-13 14:28] VITALS: BP 131/73
== END 2019-12-13 17:20 | disposition home health service (06) | DRG 871 ==
LOC: SUATTDRO 14:40 → ED 19:26 → EDIP 19:41 → 4EST 19:43 → DCLOUNGE 12-13 17:13
PROVIDERS: ADMIT Hospitalist; ATTEND Hospitalist
DX: A41.9 Sepsis, unspecified organism (principal); J96.21 Acute and chronic respiratory failure with hypoxia; F13.20 Sedative, hypnotic or anxiolytic dependence, uncomplicated; E87.4 Mixed disorder of acid-base balance; I13.0 Hypertensive heart and chronic kidney disease with heart failure and stage 1 through stage 4 chronic kidney disease, or unspecified chronic kidney disease; I50.32 Chronic diastolic (congestive) heart failure; D75.89 Other specified diseases of blood and blood-forming organs; D50.9 Iron deficiency anemia, unspecified; E78.5 Hyperlipidemia, unspecified; D72.829 Elevated white blood cell count, unspecified; F32.9 Major depressive disorder, single episode, unspecified; R73.9 Hyperglycemia, unspecified; F41.9 Anxiety disorder, unspecified; N18.3 Chronic kidney disease, stage 3 (moderate); N95.0 Postmenopausal bleeding; T38.0X5A Adverse effect of glucocorticoids and synthetic analogues, initial encounter; Y92.89 Other specified places as the place of occurrence of the external cause; Z87.01 Personal history of pneumonia (recurrent); Z85.820 Personal history of malignant melanoma of skin; Z87.891 Personal history of nicotine dependence; Z88.1 Allergy status to other antibiotic agents; Z99.81 Dependence on supplemental oxygen; Z88.2 Allergy status to sulfonamides; Z88.8 Allergy status to other drugs, medicaments and biological substances; Z91.018 Allergy to other foods; J43.9 Emphysema, unspecified
CPT/HCPCS: 36415; 36600; 71045; 71275; 76830; 80048; 80053; 81003; 82607; 82728; 82803; 82962; 83540; 83550; 83605; 83880; 84439; 84443; 84481; 84484; 85025; 85379; 87040; 87400; 93005; 94640; G0378; J0456; J0696; J1644; J7626; Q0162; Q9967; J1815; J2930; J7050; J7512